=== PATIENT | female | born 1940 | race American Indian/Alaskan Native ===

== ENCOUNTER 2017-12-05 03:07 | Emergency (ER) | payer MEDICARE ==
[2017-12-05] MEDS ORDERED: ANTIVERT PO ONE (03:25)
[2017-12-05 03:52] LABS: Basophils % (Auto) 0.7 % (0.0-1.8); Eosinophils % (Auto) 0.9 % (0.0-4.3); Hematocrit 31.5 % (30.3-42.9); Hemoglobin 10.4 gm/dl (10.1-14.3); Lymphocytes # (Auto) 1.5 K/mm3 (1.2-5.4); Lymphocytes % (Auto) 32.5 % (13.4-35.0); Mean Corpuscular HGB Conc 33 % (30-34); Mean Corpuscular Hemoglobin 29 pg (28-32); Mean Corpuscular Volume 89 fl (79-97); Monocytes # (Auto) 0.5 K/mm3 (0.0-0.8); Monocytes % (Auto) 10.2 % (0.0-7.3); Platelet Count 169 K/mm3 (140-440); Red Blood Count 3.55 M/mm3 (3.65-5.03); Red Cell Distribution Width 15.4 % (13.2-15.2)
[2017-12-05 04:09] LABS: Calcium 8.7 mg/dL (8.4-10.2)
--- NOTE | 2017-12-05 04:20 | Cat Scan Report ---
FINAL REPORT EXAM: CT HEAD/BRAIN WO CON HISTORY: headache with elevated BP TECHNIQUE: CT imaging is acquired through the brain without contrast. Transaxial reformations are provided. PRIORS: None. FINDINGS: Ventricles and CSF spaces are proportionately enlarged, consistent with parenchymal atrophy. Scattered deep and subcortical white matter hypodense foci are confluent in some areas and are compatible with microvascular angiopathy. No acute intracranial hemorrhage or mass effect. No skull fracture. No significant abnormality within the imaged paranasal sinuses or mastoid air cells. IMPRESSION: No acute intracranial abnormality. 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
[2017-12-05] MEDS ORDERED: APRESOLINE ONE (04:49)
[2017-12-05] MEDS ORDERED: APRESOLINE IM ONE (04:49)
--- NOTE | 2017-12-05 05:24 | Emergency Department Report ---
ED Dizziness HPI - General Chief Complaint: Dizziness Stated Complaint: HEAD PAIN Time Seen by Provider: 12/05/17 03:19 Source: patient, EMS Mode of arrival: Stretcher Limitations: No Limitations - History of Present Illness Initial Comments: Patient is a 77-year-old female past medical history of hypertension who states she's missed 2 doses of her blood pressure medicines her blood pressure increased. Patient is complaining of headache and some mild dizziness. Patient denies chest pain shortness of breath nausea vomiting at this time. Patient states the headache is global pounding and diffuse. Patient states she has a blood pressure medicines she does not did not take it yesterday. - Related Data Previous Rx's Medication Instructions Recorded Last Taken Type Acetaminophen/Codeine [Tylenol #3] 1 tab PO Q6H PRN #15 tab 08/31/13 Unknown Rx Allergies Allergy/AdvReac Type Severity Reaction Status Date / Time No Known Allergies Allergy Verified 12/05/17 05:01 ED Review of Systems ROS: Stated complaint: HEAD PAIN Other details as noted in HPI Comment: All other systems reviewed and negative ED Past Medical Hx - Past Medical History Previous Medical History?: Yes Hx Hypertension: Yes Hx CVA: Yes Hx GERD: Yes Hx Asthma: Yes - Surgical History Past Surgical History?: Yes Additional Surgical History: hysterectomy. exploratory lap. right hand - Social History Smoking Status: Never Smoker - Medications Home Medications: Home Medications Medication Instructions Recorded Confirmed Last Taken Type Acetaminophen/Codeine [Tylenol #3] 1 tab PO Q6H PRN #15 tab 08/31/13 Unknown Rx ED Physical Exam - General Limitations: No Limitations General appearance: alert, in no apparent distress - Head Head exam: Present: atraumatic, normocephalic - Eye Eye exam: Present: normal appearance - ENT ENT exam: Present: mucous membranes moist - Neck Neck exam: Present: normal inspection - Respiratory Respiratory exam: Present: normal lung sounds bilaterally. Absent: respiratory distress - Cardiovascular Cardiovascular Exam: Present: regular rate, normal rhythm. Absent: systolic murmur, diastolic murmur, rubs, gallop - GI/Abdominal GI/Abdominal exam: Present: soft, normal bowel sounds - Extremities Exam Extremities exam: Present: normal inspection - Back Exam Back exam: Present: normal inspection - Neurological Exam Neurological exam: Present: alert, oriented X3 - Psychiatric Psychiatric exam: Present: normal affect, normal mood - Skin Skin exam: Present: warm, dry, intact, normal color. Absent: rash ED Course Vital Signs 12/05/17 12/05/17 12/05/17 03:09 03:16 03:19 Temperature 98.0 F Pulse Rate 65 58 L 62 Respiratory 15 14 18 Rate Blood Pressure 216/69 216/69 O2 Sat by Pulse 100 100 Oximetry 12/05/17 12/05/17 12/05/17 03:30 03:46 04:36 Temperature Pulse Rate 65 59 L Respiratory 17 18 Rate Blood Pressure 216/69 214/76 190/59 O2 Sat by Pulse 100 100 Oximetry 12/05/17 05:00 Temperature Pulse Rate 63 Respiratory Rate Blood Pressure 190/69 O2 Sat by Pulse Oximetry ED Medical Decision Making - Lab Data Result diagrams: 12/05/17 03:33 12/05/17 03:33 - Radiology Data Radiology results: report reviewed CT of the head without contrast shows no acute process Critical care attestation.: If time is entered above; I have spent that time in minutes in the direct care of this critically ill patient, excluding procedure time. ED Disposition Clinical Impression: Hypertensive urgency Disposition: DC-01 TO HOME OR SELFCARE Is pt being admited?: No Does the pt Need Aspirin: No Condition: Stable Instructions: Hypertension (ED) Referrals: PRIMARY CARE, [Primary Care Provider] - 3-5 Days
[2017-12-05 05:31] VITALS: BP 175/57
== END 2017-12-05 06:22 | disposition home or self-care (01) ==
LOC: ED 03:07
DX: I10 Essential (primary) hypertension (principal); K21.9 Gastro-esophageal reflux disease without esophagitis
CPT/HCPCS: 36415; 70450; 80048; 85025; 96372; 99284; J0360

== ENCOUNTER 2018-01-01 11:30 | Outpatient (CLI) | payer MEDICARE ==
--- NOTE | 2018-01-01 12:28 | XRay Report ---
RIGHT HUMERUS: History: Pain. AP and lateral views of the humerus demonstrate normal mineralization and contours for this patient's age. No destructive changes are noted and the adjacent soft tissues are normal. IMPRESSION: No abnormality identified.
--- NOTE | 2018-01-01 12:28 | XRay Report ---
RIGHT SHOULDER, 3 VIEWS: HISTORY: right shoulder pain. Normal bone mineralization. Mild osteoarthritic changes are identified at the acromioclavicular joint and glenohumeral joint. No evidence for fracture, dislocation or ligamentous injury. The soft tissues are unremarkable. IMPRESSION: Osteoarthritis.
== END 2018-01-01 11:31 | disposition home or self-care (01) ==
LOC: XRAY 11:30
PROVIDERS: ATTEND Internal Medicine
DX: M19.011 Primary osteoarthritis, right shoulder (principal)